=== PATIENT | female | born 1970 | race Caucasian/White ===

== ENCOUNTER 2016-12-10 21:05 | Emergency (ER) | payer OTHER ==
--- NOTE | 2016-12-10 21:13 | EDPHY ---
H & P Source: Patient Exam Limitations: No limitations - Medical/Surgical History Hx Asthma: No Hx Chronic Respiratory Disease: No Hx Diabetes: No Hx Cardiac Disease: Yes Hx Renal Disease: No Hx Cirrhosis: No Hx Alcoholism: No Hx HIV/AIDS: No Hx Splenectomy or Spleen Trauma: No Other PMH: Myocarditis, history of elevated cardiac enzymes - Family History Significant Family History: No pertinent family hx - Social History Smoking Status: Never smoked Time Seen by Provider: 12/10/16 21:09 HPI/ROS: CHIEF COMPLAINT: Chest pain, vomiting HISTORY OF PRESENT ILLNESS: The patient presents to the ED for evaluation of substernal chest pain which began over the past 2 hours with associated vomiting. The patient reports having history of a cardiac event over 1 year ago which reportedly was evaluated with an unremarkable angiogram. She reportedly had a pericardial effusion and did have a slightly elevated troponin. She is under the care of a insurance advisor here in [place]. She is currently taking no regular medications. The patient reports moderate to severe substernal discomfort which has been worsened with retching over the past several hours. She complains of some mild epigastric pain. Patient denies any melena. She denies any recent flu-like illness. She denies additional complaints. REVIEW OF SYSTEMS: A comprehensive 10 point review of systems is otherwise negative aside from elements mentioned in the history of present illness. (Mars Kenney) - Physical Exam Exam: General Appearance: Alert, anxious, appears uncomfortable Eyes: Pupils equal and round no pallor or injection ENT, Mouth: Mucous membranes moist Respiratory: There are no retractions, lungs are clear to auscultation Cardiovascular: Regular rate and rhythm Gastrointestinal: Abdomen is soft and nontender, no masses, bowel sounds normal Neurological: A&O, normal motor function, normal sensory exam, normal cranial nerves Skin: Warm and dry, no rashes Musculoskeletal: Neck is supple nontender Extremities: symmetrical, full range of motion Psychiatric: Patient is oriented X 3, there is no agitation (Mars Kenney) Constitutional: Initial Vital Signs Temperature (C) 36.8 C 12/10/16 21:39 Heart Rate 79 12/10/16 21:39 Respiratory Rate 14 12/10/16 21:39 Blood Pressure 109/69 12/10/16 21:39 O2 Sat (%) 99 12/10/16 21:39 O2 Delivery Mode Room Air Allergies/Adverse Reactions: Sulfa (Sulfonamide Antibiotics) Allergy (Verified 09/22/16 22:10) Home Medications: Medication Instructions Recorded NK [No Known Home Meds] 09/05/13 Medical Decision Making - Diagnostics EKG Interpretation: EKG: Complete interpretation has been separately recorded in the [facility] archive. Summary impression: Sinus rhythm, rate 71, no ST segment elevation or depression (Mars Kenney) Imaging: Chest x-ray PA lateral: Images reviewed by myself, negative for acute disease, infiltrate, pneumothorax, cardiomegaly or abnormal mediastinum. (Mars Kenney) Right upper quadrant ultrasound demonstrates no signs of acute cholecystitis or cholelithiasis, discussed with Dr. Tim of Radiology. (Jordyn Rader) ED Course/Re-evaluation: The patient presents to the emergency department with substernal chest discomfort in the setting of vomiting today. The patient reportedly has a history of myocardial infarction however upon further questioning the patient reports she had a negative angiogram. She reportedly did have a history of pericarditis and possible pericardial effusion. Upon arrival, the patient appeared quite uncomfortable. She was retching. She had taken Zofran prior to arrival. The patient did have a stat EKG performed which demonstrates no evidence of ischemia. The patient had an IV established. She received IV Zofran. The patient continued to complain of ongoing nausea and discomfort. She received a 1 mg dose of IV Ativan. The patient was also given a GI cocktail. The patient's D-dimer is negative which I feel adequately excludes pulmonary embolism. Reexamined the patient at 11:00 p.m.: She is feeling better. She now complains of some right upper quadrant pain. Liver function test and lipase are still pending. I have ordered a right upper quadrant ultrasound. Plan at this point time will be for a repeat troponin at midnight. As well as assessment of right upper quadrant ultrasound, liver function tests and lipase. If these studies are all negative I do feel the patient can safely be discharged home if she is continuing to feel better. I will turn the patient over to Dr. Jordyn Rader at shift change pending these outstanding studies with the above disposition plan. (Mars Kenney) 12:55 a.m.- Repeat troponin is negative. Her ultrasound is also unremarkable. She will be discharged home from the emergency room. (Jordyn Rader) Differential Diagnosis: Differential diagnosis considered includes myocardial infarction, pericarditis, pulmonary embolism, esophagitis, pancreatitis, cholecystitis (Mars Kenney) - Data Points Laboratory Results: Laboratory Results 12/10/16 21:21 12/10/16 21:21 12/11/16 12/10/16 12/10/16 00:05 21:26 21:21 WBC RBC Hgb Hct MCV MCH MCHC RDW Plt Count MPV Neut % (Auto) Lymph % (Auto) [place] % (Auto) Eos % (Auto) Baso % (Auto) Nucleat RBC Rel Count Absolute Neuts (auto) Absolute Lymphs (auto) Absolute Monos (auto) Absolute Eos (auto) Absolute Basos (auto) Absolute Nucleated RBC Immature Gran % Immature Gran # D-Dimer 0.50 ug/mLFEU ug/mLFEU (0.00-0.50) Sodium 140 mEq/L mEq/L (134-144) Potassium 3.9 mEq/L mEq/L (3.5-5.2) Chloride 105 mEq/L mEq/L (97-110) Carbon Dioxide 24 mEq/l mEq/l (22-31) Anion Gap 11 mEq/L mEq/L (8-16) BUN 24 mg/dL H mg/dL (7-23) Creatinine 0.9 mg/dL mg/dL (0.6-1.0) Estimated GFR > 60 Glucose 89 mg/dL mg/dL (70-100) Calcium 9.1 mg/dL mg/dL (8.5-10.4) Total Bilirubin 0.6 mg/dL mg/dL (0.1-1.4) Conjugated Bilirubin 0.2 mg/dL mg/dL (0.0-0.5) Unconjugated Bilirubin 0.4 mg/dL mg/dL (0.0-1.1) AST 25 IU/L IU/L (14-46) ALT 36 IU/L IU/L (9-52) Alkaline Phosphatase 34 IU/L L IU/L (38-126) Troponin I 0.015 ng/mL ng/mL < 0.012 ng/mL ng/mL (0-0.034) (0-0.034) Total Protein 7.3 g/dL g/dL (6.3-8.2) Albumin 4.5 g/dL g/dL (3.5-5.0) Lipase 374.0 IU/L H IU/L (23-300) 12/10/16 21:21 WBC 10.33 10^3/uL H 10^3/uL (3.80-9.50) RBC 4.50 10^6/uL 10^6/uL (4.18-5.33) Hgb 15.0 g/dL g/dL (12.6-16.3) Hct 42.6 % % (38.0-47.0) MCV 94.7 fL fL (81.5-99.8) MCH 33.3 pg pg (27.9-34.1) MCHC 35.2 g/dL g/dL (32.4-36.7) RDW 11.5 % % (11.5-15.2) Plt Count 247 10^3/uL 10^3/uL (150-400) MPV 9.0 fL fL (8.7-11.7) Neut % (Auto) 80.5 % H % (39.3-74.2) Lymph % (Auto) 13.0 % L % (15.0-45.0) [place] % (Auto) 5.2 % % (4.5-13.0) Eos % (Auto) 0.8 % % (0.6-7.6) Baso % (Auto) 0.3 % % (0.3-1.7) Nucleat RBC Rel Count 0.0 % % (0.0-0.2) Absolute Neuts (auto) 8.32 10^3/uL H 10^3/uL (1.70-6.50) Absolute Lymphs (auto) 1.34 10^3/uL 10^3/uL (1.00-3.00) Absolute Monos (auto) 0.54 10^3/uL 10^3/uL (0.30-0.80) Absolute Eos (auto) 0.08 10^3/uL 10^3/uL (0.03-0.40) Absolute Basos (auto) 0.03 10^3/uL 10^3/uL (0.02-0.10) Absolute Nucleated RBC 0.00 10^3/uL 10^3/uL (0-0.01) Immature Gran % 0.2 % % (0.0-1.1) Immature Gran # 0.02 10^3/uL 10^3/uL (0.00-0.10) D-Dimer Sodium Potassium Chloride Carbon Dioxide Anion Gap BUN Creatinine Estimated GFR Glucose Calcium Total Bilirubin Conjugated Bilirubin Unconjugated Bilirubin AST ALT Alkaline Phosphatase Troponin I Total Protein Albumin Lipase Medications Given: Discontinued Medications Sodium Chloride (Ns) 1,000 mls @ 0 mls/hr IV ONCE ONE PRN Reason: Wide Open Stop: 12/10/16 21:40 Last Admin: 12/10/16 21:39 Dose: 1,000 mls Lorazepam (Ativan Injection) 1 mg IVP EDNOW ONE Stop: 12/10/16 22:10 Last Admin: 12/10/16 22:13 Dose: 1 mg Miscellaneous Medication (Gi Cocktail) 55 ml PO EDNOW ONE Stop: 12/10/16 22:15 Last Admin: 12/10/16 22:19 Dose: 55 ml Ondansetron HCl (Zofran) 4 mg IVP EDNOW ONE Stop: 12/10/16 21:35 Last Admin: 12/10/16 21:38 Dose: 4 mg Departure - Departure Disposition: Home, Routine, Self-Care Clinical Impression: Chest pain Qualifiers: Chest pain type: unspecified Qualified Code(s): R07.9 - Chest pain, unspecified Condition: Good Instructions: Chest Pain (ED) Referrals: NONE *PRIMARY CARE P,. [Primary Care Provider] - As per Instructions
--- NOTE | 2016-12-10 21:23 | CPEKG ---
Heart Rate: 71 RR Interval: 845 P-R Interval: 134 QRSD Interval: 86 QT Interval: 428 QTC Interval: 466 P [place]: 0 QRS [place]: 37 T Wave [place]: 48 EKG Severity - NORMAL ECG - EKG Impression: SINUS RHYTHM Electronically Signed By: Mars Kenney 10-Dec-2016 22:28:27
[2016-12-10 21:30] LABS: % IMMATURE GRANULYOCYTES 0.2 % (0.0-1.1); ABSOLUTE IMMATURE GRANULOCYTES 0.02 10^3/uL (0.00-0.10); ADD DIFF? NO; ADD MORPH? NO; ADD SCAN? NO; ATYPICAL LYMPHOCYTE FLAG 10 (0-99); FRAGMENT RBC FLAG 0 (0-99); HEMATOCRIT 42.6 % (38.0-47.0); LEFT SHIFT FLG 0 (0-99); LIPEMIA HEMOLYSIS FLAG 90 (0-99); MEAN CELL HEMOGLOBIN 33.3 pg (27.9-34.1); MEAN CELL HEMOGLOBIN CONCENTR. 35.2 g/dL (32.4-36.7); MEAN CELL VOLUME 94.7 fL (81.5-99.8); PLATELET CLUMPS FLAG 0 (0-99); PLATELET COUNT 247 10^3/uL (150-400); RED CELL DISTRIBUTION WIDTH 11.5 % (11.5-15.2)
[2016-12-10] MEDS ORDERED: ONDANSETRON 4 MG/2 ML VIAL IVP ONE (21:34)
[2016-12-10] MEDS ORDERED: NS 1,000 ML IV ONE (21:39)
[2016-12-10 21:43] VITALS: TEMP 98.2
[2016-12-10 21:43] LABS: ANION GAP 11 mEq/L (8-16); CALCIUM 9.1 mg/dL (8.5-10.4); CARBON DIOXIDE 24 mEq/l (22-31); CHLORIDE 105 mEq/L (97-110); CREATININE 0.9 mg/dL (0.6-1.0); GLOMERULAR FILTRATION RATE > 60; GLUCOSE 89 mg/dL (70-100); POTASSIUM 3.9 mEq/L (3.5-5.2); SODIUM 140 mEq/L (134-144)
[2016-12-10 21:54] LABS: TROPONIN I < 0.012 ng/mL (0-0.034)
[2016-12-10 22:08] VITALS: PULSE 75
[2016-12-10] MEDS ORDERED: LORazepam 2 MG/ML INJ IVP ONE (22:09)
[2016-12-10] MEDS ORDERED: MAALOX/LIDO/HYOSC GI COCKTAIL 55 ML BOTTLE PO ONE (22:14)
[2016-12-10 22:54] LABS: ALANINE AMINOTRANSFERASE 36 IU/L (9-52); ALBUMIN 4.5 g/dL (3.5-5.0); ALKALINE PHOSPHATASE 34 IU/L (38-126); ASPARTATE AMINOTRANSFERASE 25 IU/L (14-46); BILIRUBIN,TOTAL 0.6 mg/dL (0.1-1.4); BILIRUBIN-CONJUGATED 0.2 mg/dL (0.0-0.5); BILIRUBIN-UNCONJUGATED 0.4 mg/dL (0.0-1.1); TOTAL PROTEIN 7.3 g/dL (6.3-8.2)
[2016-12-11 01:10] VITALS: BP 110/70; RESP 14; O2SAT 94
== END 2016-12-11 01:17 | disposition home or self-care (01) ==
DX: R07.2 Precordial pain (principal)
CPT/HCPCS: 96374; J2405

== ENCOUNTER → 2017-11-12 | Outpatient (CLI) | payer OTHER | LOC: FIMAGING 13:14 | PROVIDERS: ATTEND Obstetrics & Gynecology | DX: Z12.31 Encounter for screening mammogram for malignant neoplasm of breast (principal); Z80.3 Family history of malignant neoplasm of breast ==